=== PATIENT | female | born 2005 | race Caucasian/White ===

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

== ENCOUNTER 2023-10-22 17:19 | Emergency (ER) | payer MEDICAID, SELFPAY ==
[2023-10-22 17:27] VITALS: BP 125/88; PULSE 95; RESP 16; TEMP 36.3; O2SAT 100; BMI 22.1
--- NOTE | 2023-10-22 17:59 | ED.GENADULT ---
HPI - General Adult General Chief complaint: Fall/Minor Trauma Stated complaint: Trampled by horses-2 Time Seen by Provider: 10/22/23 17:22 History of Present Illness HPI narrative: This 18-year-old female comes in for evaluation of injuries that happened just prior to arrival. She states that she has 2 horses and got bumped by 1 of them and she fell down. The horses were spooked and both of them jumped over her and she thinks that she was not directly stepped on by either course but yet complains of some abrasions and pains in her right shoulder, right forearm, and right upper leg. She did not lose consciousness and was able to get up and ambulate normally. Related Data Home Medications Medication Instructions Recorded Confirmed adapalene 0.1 % topical cream 1 applic topical QDAY 03/15/22 10/03/22 (Differin) insulin aspart U-100 100 unit/mL 15 unit subcut TID 03/15/22 10/03/22 (3 mL) subcutaneous pen (Novolog FlexPen U-100 Insulin aspart) insulin degludec 100 unit/mL (3 24 unit subcut QAM 03/15/22 10/03/22 mL) subcutaneous pen ketoconazole 2 % topical cream 1 applic topical QDAY 03/15/22 10/03/22 guanfacine 1 mg tablet,extended 1 mg PO QAM 10/22/23 10/22/23 release 24 hr Allergies Allergy/AdvReac Type Severity Reaction Status Date / Time amoxicillin Allergy Unknown Hives Verified 10/03/22 11:01 Review of Systems Status of ROS: Reports: 10 or more systems reviewed and unremarkable except as noted in History and below Narrative: Constitutional: No fevers, no weight gain or loss. Eyes: No discharge. No vision changes. HENT: No congestion, no sore throat, no ear pain. Cardiovascular: No chest pain, no palpitations. Respiratory: No shortness of breath, no wheezes, no cough. Gastrointestinal: No abdominal pain, no vomiting, no diarrhea. Genitourinary: No dysuria, no hematuria. Musculoskeletal: Normal range of motion. Abrasions on the right upper extremity and lower extremity as described above. Skin: No rashes, no pruritis. Neurological: No dizziness, weakness, sensory change, speech change. Endo/Heme/Allergies: No bruising or bleeding. No polydipsia. Pysch: no suicidality, no anxiety, no insomnia. All other systems reviewed and are negative. 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 HEENT: Small lump on the left forehead. No overlying abrasion or laceration. There is no fluctuance of lump on her forehead. Neck: Normal range of motion. Nontender. Supple. Heart: Regular. No murmurs. Normal rate. Intact distal pulses. Lungs: Clear to auscultation. No chest discomfort. No wheezes, rhonchi, or rales. Abdomen: Normal bowel sounds. Nontender. No rebound tenderness. Genitalia: Deferred. Back: No midline tenderness. Normal range of motion. Extremities: Normal range of motion. Superficial abrasions on the right upper forearm and right knee and upper anterior thigh. Skin: Intact. No rash. Warm. No erythema or pallor. Neurologic: No altered sensation. No weakness. Alert and oriented. Psychiatric: No suicidality. No anxiety or depression. No insomnia. Nursing notes and vitals signs are reviewed. Const: Vital Signs, click to edit/add: Vital Signs - 24 hr 10/22/23 17:27 Temperature 97.3 F L Pulse Rate [Pulse Oximeter] 95 Respiratory Rate 16 Blood Pressure [Ri ght Upper Arm] 125/88 Pulse Oximetry 100 Oxygen Delivery Me thod Room Air Course Vital Signs Vital signs: Initial Vital Signs Temperature 97.3 F L 10/22/23 17:27 Temperature Source Temporal Artery Scan 10/22/23 17:27 Pulse Rate 95 10/22/23 17:27 Pulse Rhythm Regular 10/22/23 17:27 Respiratory Rate 16 10/22/23 17:27 Blood Pressure 125/88 10/22/23 17:27 Blood Pressure Mean 100 10/22/23 17:27 Blood Pressure Position Sitting 10/22/23 17:27 Pulse Oximetry 100 10/22/23 17:27 Oxygen Delivery Method Room Air 10/22/23 17:27 Vital Signs Temperature 97.3 F L 10/22/23 17:27 Pulse Rate 95 10/22/23 17:27 Respiratory Rate 16 10/22/23 17:27 Blood Pressure 125/88 10/22/23 17:27 Pulse Oximetry 100 10/22/23 17:27 Oxygen Delivery Method Room Air 10/22/23 17:27 Temperature 97.3 F L 10/22/23 17:27 Pulse Rate 95 10/22/23 17:27 Respiratory Rate 16 10/22/23 17:27 Blood Pressure 125/88 10/22/23 17:27 Pulse Oximetry 100 10/22/23 17:27 Oxygen Delivery Method Room Air 10/22/23 17:27 Medical Decision Making MDM Narrative Medical decision making narrative: This patient head injuries related to her 2 or sys as described above. She has a normal GCS of 15 and shows some signs of superficial abrasions but has no other disability. She has not had any vomiting. She does describe a headache but it is not severe. She does not have any neurologic deficit or altered level of consciousness. I did discuss the role of CT and x-ray imaging and in a process of shared decision making the patient declined any of these studies. She is okay to be discharged home. She may have sustained a concussion so I did explain signs and symptoms of concussion and prognosis and matters going forward for recovery. The patient did received prescription for Toradol and Zofran and I did provide a return to school note. Discharge Plan Discharge Clinical Impression: Concussion without loss of consciousness, Abrasion, multiple sites Patient Disposition: Home, Self-Care Condition: Stable Additional Instructions: Use medication as needed and directed. Increase activity as tolerated. Follow up with MD return if worsening. Prescriptions: No Action guanfacine 1 mg tablet extended release 24 hr 1 mg PO QAM ketoconazole 2 % cream 1 applic topical QDAY adapalene [Differin] 0.1 % cream 1 applic topical QDAY insulin aspart U-100 [Novolog FlexPen U-100 Insulin] 100 unit/mL (3 mL) insulin pen 15 unit subcut TID insulin degludec 100 unit/mL (3 mL) insulin pen 24 unit subcut QAM Follow Up/Referrals: Janneth Odonnell DO [Primary Care Provider] - Stand Alone Forms: [facility] Info Instructions
--- NOTE | 2023-10-22 18:27 | ED.NURSE ---
Abrasions cleansed with hibiclens and normal saline. Applied bacitracin on top.
[2023-10-22 18:44] VITALS: BP 125/88; PULSE 95; RESP 16; TEMP 36.3
== END 2023-10-22 18:45 | disposition home or self-care (01) ==
LOC: ED 18:29
PROVIDERS: Emergency Provider Emergency Medicine Emergency Medical Services; PCP Family Medicine
DX: S06.0X0A Concussion without loss of consciousness, initial encounter (principal); W55.12XA Struck by horse, initial encounter; S50.811A Abrasion of right forearm, initial encounter; S80.211A Abrasion, right knee, initial encounter
CPT/HCPCS: 99283; 99284

== ENCOUNTER 2023-10-30 16:53 | Emergency (ER) | payer MEDICAID, SELFPAY ==
[2023-10-30 17:08] VITALS: BP 117/75; PULSE 106; RESP 16; TEMP 36.6; O2SAT 100; BMI 18.9
--- NOTE | 2023-10-30 17:42 | ED.EPISTAXIS ---
History of Present Illness General Date Seen: 10/30/23 Chief Complaint: Epistaxis/Nosebleed Stated Complaint: Horse accident last wk-blood loss f nose still Time Seen by Provider: 10/30/23 17:36 Source: patient Mode of arrival: ambulatory Limitations: no limitations History of Present Illness HPI Narrative: Patient is a 18-year-old female presenting to the emergency department for epistaxis. One week ago she was knocked over by her says. She came to the emergency department to be evaluated at that time says it was decided no imaging was necessary per chart review. She states since then she has had 3 episodes of epistaxis. Before this she has never had issues with epistaxis before. She was concerned because of the recent head injury. She states the only pain she is having currently is the left forehead where she had a hematoma. Says the pain is very mild only hurts when she touches it. No other issues at this time. Last episode of epistaxis was shortly prior to arrival and has since resolved. States each time last between 30 minutes and an hour. Denies fevers, chills, headache, vision changes, weakness, numbness, chest pain, shortness of breath, abdominal pain, lightheadedness, dizziness. Related Data Home Medications Medication Instructions Recorded Confirmed adapalene 0.1 % topical cream 1 applic topical QDAY 03/15/22 10/03/22 (Differin) insulin aspart U-100 100 unit/mL 15 unit subcut TID 03/15/22 10/03/22 (3 mL) subcutaneous pen (Novolog FlexPen U-100 Insulin aspart) insulin degludec 100 unit/mL (3 24 unit subcut QAM 03/15/22 10/03/22 mL) subcutaneous pen ketoconazole 2 % topical cream 1 applic topical QDAY 03/15/22 10/03/22 guanfacine 1 mg tablet,extended 1 mg PO QAM 10/22/23 10/22/23 release 24 hr Allergies Allergy/AdvReac Type Severity Reaction Status Date / Time amoxicillin Allergy Unknown Hives Verified 10/03/22 11:01 Review of Systems Status of ROS: Reports: 10 or more systems reviewed and unremarkable except as noted in History and below 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 Moist mucous membranes. Mild tenderness to left forehead and left zygomatic arch. Area of anterior bleeding seen and right nares Neck: Symmetric, trachea midline, No thyromegaly. CVS: RRR, No murmurs or gallops. Peripheral pulses 2+ and equal in all extremities RESP: Unlabored respiratory effort. Clear to auscultation bilaterally. GI: Nontender/Nondistended, No rebound or guarding. MSK:Extremities w/o deformity, Normal Active ROM Skin: Warm, Dry. No rashes or lesions. Neuro: Normal Muscle tone, No focal neurological deficits. Psych: Awake, Alert, & Oriented x3. Appropriate mood and affect. Const: Vital Signs, click to edit/add: Vital Signs - 24 hr 10/30/23 17:08 Temperature 97.9 F Pulse Rate [Right Pulse Oximeter] 106 H Respiratory Rate 16 Blood Pressure [Ri ght Upper Arm] 117/75 Pulse Oximetry 100 Oxygen Delivery Me thod Room Air Course Vital Signs Vital signs: Initial Vital Signs Temperature 97.9 F 10/30/23 17:08 Temperature Source Temporal Artery Scan 10/30/23 17:08 Pulse Rate 106 H 10/30/23 17:08 Pulse Rhythm Regular 10/30/23 17:08 Pulse Strength 3+ Normal 10/30/23 17:08 Respiratory Rate 16 10/30/23 17:08 Blood Pressure 117/75 10/30/23 17:08 Blood Pressure Mean 89 10/30/23 17:08 Blood Pressure Position Sitting 10/30/23 17:08 Pulse Oximetry 100 10/30/23 17:08 Oxygen Delivery Method Room Air 10/30/23 17:08 Vital Signs Temperature 97.9 F 10/30/23 17:08 Pulse Rate 106 H 10/30/23 17:08 Respiratory Rate 16 10/30/23 17:08 Blood Pressure 117/75 10/30/23 17:08 Pulse Oximetry 100 10/30/23 17:08 Oxygen Delivery Method Room Air 10/30/23 17:08 Temperature 97.9 F 10/30/23 17:08 Pulse Rate 106 H 10/30/23 17:08 Respiratory Rate 16 10/30/23 17:08 Blood Pressure 117/75 10/30/23 17:08 Pulse Oximetry 100 10/30/23 17:08 Oxygen Delivery Method Room Air 10/30/23 17:08 MDM - Epistaxis MDM Narrative Medical decision making narrative: Patient is a 18-year-old female presenting to the emergency department for epistaxis. On my exam I could clearly see where the bleeding is starting in his anterior. There is very unlikely to be a posterior bleed along with this I do not believe head imaging is necessary as I can clearly see where the bleeding starts. Even if there is a minor fracture of the cartilage or nasal bone fracture there is nothing needs to be done for it at this time. I do not see any signs of an open fracture within the nostril. She has the mild temporal and zygomatic arch tenderness on left but is only there on palpation and she is not concerned about it. I do not believe we need to do any head imaging at this time as the exposure to radiation would be unnecessary. She will be discharged home. This nose bleed is likely just from the dry air. 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 She is agreeable with this plan Discharge Plan Discharge Clinical Impression: Epistaxis Patient Disposition: Home, Self-Care Condition: Stable Instructions: Nosebleed (ED) Additional Instructions: The nose bleed occurs again blowout the nostril that is bleeding. Do a spray of Afrin. Foot direct pressure over the cartilage area of the nose and the new head forward for 20 minutes. The Afrin can can be picked up [id number]. He continued to have issues with it she can follow up with the primary care provider or follow-up with ENT. Phone number to set up ENT appointment is [phone] Prescriptions: No Action guanfacine 1 mg tablet extended release 24 hr 1 mg PO QAM ketoconazole 2 % cream 1 applic topical QDAY adapalene [Differin] 0.1 % cream 1 applic topical QDAY insulin aspart U-100 [Novolog FlexPen U-100 Insulin] 100 unit/mL (3 mL) insulin pen 15 unit subcut TID insulin degludec 100 unit/mL (3 mL) insulin pen 24 unit subcut QAM Follow Up/Referrals: Janneth Odonnell DO [Primary Care Provider] - Stand Alone [facility]
== END 2023-10-30 18:09 | disposition home or self-care (01) ==
LOC: ED 17:58
PROVIDERS: Emergency Provider Student in an Organized Health Care Education/Training Program; PCP Family Medicine
DX: R04.0 Epistaxis (principal)
CPT/HCPCS: 99282; 99283

== ENCOUNTER 2023-12-19 09:18 | Emergency (ER) | payer OTHER, SELFPAY ==
[2023-12-19] VITALS (55 sets, daily range): BP systolic 103–144; BP diastolic 63–111; PULSE 118–163; RESP 20; TEMP 36.3; O2SAT 76–100; BMI 18.3
[2023-12-19] MEDS: ONDANSETRON 2 MG/ML inj 4 MG IVP (09:45)
[2023-12-19] MEDS: LORazepam 2 MG/ML inj 1 MG IVP ×2 (09:45→12:52)
[2023-12-19] MEDS: 0.9 % SODIUM CHLORIDE 1000 ml 1,000 ML IV (09:45)
[2023-12-19 10:12] LABS: HCO3 VBG 4 mmol/L (21-28); PCO2 VBG 23 mmHG (40-50); PO2 VBG 66.9 mmHG (25-47)
[2023-12-19 10:14] LABS: Basophils Percent Auto 0.3 % (0.0-3.0); Eosinophils Percent Auto 0.1 % (0.0-7.0); Hemoglobin* 15.9 gm/dL (12.0-16.0); Immature Granulocytes Pct Auto 1.4 %; Lymphocytes Percent Auto 18.7 % (20-44); Mean Corpuscular HGB Conc 32 gm/dL (32-36); Mean Corpuscular Hemoglobin 32 pg (26-34); Mean Corpuscular Volume 99 fL (80-100); Monocytes Percent Auto 4.7 % (0.0-11.0); Neutrophils Percent Auto 74.8 % (42.0-72.0); Platelet Count* 529 K/uL (140-440); RDW Coefficient of Variation % 12.6 % (11.5-15.5); Red Blood Count 5.04 m/uL (4.00-5.20)
[2023-12-19 10:33] LABS: Slide Review Reflex No
[2023-12-19 10:50] LABS: Albumin* 5.5 g/dL (3.3-5.0); Chloride* 108 mmol/L (96-114)
[2023-12-19 10:51] LABS: Potassium* 5.5 mmol/L (3.6-5.1); Sodium* 146 mmol/L (135-149)
[2023-12-19 10:53] LABS: Bilirubin Total* 0.5 mg/dL (0.1-1.5); Creatinine* 1.3 mg/dL (0.5-1.5); Est. Creatinine Clearance* 54.37; Estimated Glomerular Filt Rate 60 ml/min; Total Protein* 10.7 g/dL (6.0-8.3)
[2023-12-19 10:54] LABS: Alanine Aminotransferase* 70 U/L (4-35); Alkaline Phosphatase* 255 U/L (40-150); Anion Gap 33 mEq/L (7-15); Aspartate Amino Transferase* 102 U/L (12-35); Blood Urea Nitrogen* 24 mg/dL (5-24); Calcium* 10.7 mg/dL (8.4-10.6); Carbon Dioxide* < 5 mmol/L (20-32)
[2023-12-19 11:06] LABS: Ethanol* < 0.01 % (0.01-0.03)
[2023-12-19 11:07] LABS: White Blood Count* 27.43 K/uL (4.50-11.00)
--- NOTE | 2023-12-19 11:10 | ED.GENADULT ---
HPI - General Adult General Date Seen: 12/19/23 Chief complaint: Abdominal Pain Stated complaint: vomiting,stomach pain Time Seen by Provider: 12/19/23 09:31 History of Present Illness HPI narrative: History is limited by patient agitation and altered mental status 18-year-old female brought to the ER today by her mother with concern for abdominal pain, nausea, shortness of breath. She has a history of type 1 diabetes. She is supposed to be on Tresiba and use a continuous glucose monitor to manage her diabetes. History from her patient's mother and her friend mil is that she generally does not do a good job controlling her diabetes. It sounds like it is an aggravation for her and she does not like having to deal with it. It is not clear when the last time she took any of her insulin was. She may have taken some yesterday, but she can not tell me for sure. Her daughter says that there is no data from her continuous glucose monitor for at least the past 24 hours. No one knows what her sugars been running today or lately. She started to feel sick overnight with abdominal pain and nausea. She is feeling short of breath. Her mother brought her in. The patient is shouting and moaning loudly, thrashing around on the bed. She is not really able to provide any other history. Over the phone, from her friend Mil, they say that she has been doing well lately other than she has does deal with anxiety and depression. She broke up with her boyfriend last week, but her friend mil says it really has not been a problem for her. They really do not think that she has been suicidal or would have taken any pills. She does not use drugs or alcohol. She is student, unclear how she is doing her course work. Mother is well-versed with diabetes care because for other family members have insulin-dependent diabetes. She does not recall any previous episodes of DKA or previous hospitalization for diabetic complications for fate. Related Data Home Medications Medication Instructions Recorded Confirmed adapalene 0.1 % topical cream 1 applic topical QDAY 03/15/22 10/03/22 (Differin) insulin aspart U-100 100 unit/mL 15 unit subcut TID 03/15/22 10/03/22 (3 mL) subcutaneous pen (Novolog FlexPen U-100 Insulin aspart) insulin degludec 100 unit/mL (3 24 unit subcut QAM 03/15/22 10/03/22 mL) subcutaneous pen ketoconazole 2 % topical cream 1 applic topical QDAY 03/15/22 10/03/22 guanfacine 1 mg tablet,extended 1 mg PO QAM 10/22/23 10/22/23 release 24 hr Allergies Allergy/AdvReac Type Severity Reaction Status Date / Time amoxicillin Allergy Unknown Hives Verified 12/19/23 14:27 PFSH PFS Medical History Pyelonephritis (~03/2022) ?N12 - Tubulo-interstitial nephritis, not specified as acute or chronic (ICD-10) Family History Other Heart disease History of hyperlipidemia Social History Smoking Status: Never smoker Do you use any of these nicotine containing products: None Second hand tobacco smoke exposure: No How often do you have a drink containing alcohol: never AUDIT-C Alcohol total score: 0 Non-prescribed substance use: denies use Little interest or pleasure in doing things: more than half the days Feeling down, depressed, or hopeless: more than half the days service: No Exam Narrative: Exam Narrative: Primary Survey: A- patent. Shouting with a loud voice. Phonation is normal. She is a bit confused , but is protecting her airway B- tachypnea. Lung sounds clear and equal. Oxygen saturation normal on room air C- no active bleeding. Blood pressure stable. Symmetric pulses and cap refill in 4 extremities. D- no focal deficits. She is uncooperative with exam and is moaning and shouting. She often rolls onto her side specifically to look away from me in her nurses. She shouting that she ?can not do it? but with reassurance she is able to roll onto her back for IV start and exam. She is moaning and agitated. Providers was seen her of previous ER visits a that this tends to be her typical affect when she presents. She has a tendency toward anxiety. Mother is at her side is trying to get her to cooperate. Mother is supportive. Constitutional: Appears well-developed and well-nourished. Awake but seems somewhat confused. 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 HENT: Head: Atraumatic. Nose: Nose normal. Mouth/Throat: Oral mucosa is clear but quite dry. no trismus. Pharynx normal. Tonsils symmetric. No tonsillar enlargement, erythema, or exudate. Eyes: Conjunctivae normal. EOM normal. Pupils equal, round, and reactive to light. No scleral icterus. Neck: Normal range of motion. Neck supple. No tracheal deviation present. Cardiovascular: Tachycardic, regular rhythm. No gallop. No friction rub. No murmur heard. Symmetric radial artery pulses normal cap refill Pulmonary/Chest: Effort normal. She is moaning and shouting loudly. No stridor. No respiratory distress. No wheezes. No rales. No rhonchi . No tenderness. Abdominal: Soft. Bowel sounds normal. No distension. No mass. No tenderness. No rebound. No guarding. No CVA tenderness Musculoskeletal: RUE: Normal range of motion. No tenderness. No deformity LUE: Normal range of motion. No tenderness. No deformity RLE: Normal range of motion. No edema. No tenderness. No deformity LLE: Normal range of motion. No edema. No tenderness. No deformity Lymph: No cervical adenopathy. Neurological: Awake but agitated and moaning. Moving all 4 extremities purposefully. At most of the time she is uncooperative but not combative.. Normal bilateral upper extremity and lower extra strength. CN II-VII intact. No sensory deficit. GCS eye subscore is 4. GCS verbal subscore is 5. GCS motor subscore is 6. Normal coordination Skin: Skin is warm and dry. No rash noted. No pallor. Normal capillary refill. Psychiatric: Moaning and agitated. Says she is nauseous and also thirsty. Const: Vital Signs, click to edit/add: Vital Signs - 24 hr 12/19/23 09:29 12/19/23 11:27 12/19/23 11:28 Temperature 97.3 F L Pulse Rate 150 H 150 H Pulse Rate [Pulse Oximeter] 150 H Respiratory Rate 20 Blood Pressure 131/84 Blood Pressure [Ri ght Upper Arm] 140/108 H Pulse Oximetry 98 98 100 Oxygen Delivery Me thod Room Air 12/19/23 11:30 12/19/23 11:52 12/19/23 12:00 Temperature Pulse Rate 154 H 140 H Pulse Rate [Pulse Oximeter] Respiratory Rate Blood Pressure Blood Pressure [Ri ght Upper Arm] Pulse Oximetry 100 76 L 82 L Oxygen Delivery Tx thod 12/19/23 12:09 12/19/23 12:12 12/19/23 12:15 Temperature Pulse Rate 148 H 151 H 149 H Pulse Rate [Pulse Oximeter] Respiratory Rate Blood Pressure 127/77 105/82 Blood Pressure [Ri ght Upper Arm] Pulse Oximetry 97 100 99 Oxygen Delivery Tx thod 12/19/23 12:17 12/19/23 12:35 12/19/23 12:37 Temperature Pulse Rate 154 H 154 H Pulse Rate [Pulse Oximeter] Respiratory Rate Blood Pressure 103/65 Blood Pressure [Ri ght Upper Arm] Pulse Oximetry 100 100 Oxygen Delivery Tx thod 12/19/23 12:43 12/19/23 12:45 12/19/23 12:47 Temperature Pulse Rate 153 H 156 H 152 H Pulse Rate [Pulse Oximeter] Respiratory Rate Blood Pressure 132/84 116/80 Blood Pressure [Ri ght Upper Arm] Pulse Oximetry 100 100 100 Oxygen Delivery Tx thod 12/19/23 12:52 12/19/23 12:57 12/19/23 13:00 Temperature Pulse Rate 152 H 155 H 163 H Pulse Rate [Pulse Oximeter] Respiratory Rate Blood Pressure 133/82 144/86 H Blood Pressure [Ri ght Upper Arm] Pulse [facility]ximetry 99 98 [facility] 13[facility]01 12/19/23 13:06 12/19/23 13:11 Temperature Pulse Rate 159 H 156 H 155 H Pulse Rate [Pulse Oximeter] Respiratory Rate Blood Pressure 131/111 H 123/84 119/86 Blood Pressure [Ri ght Upper Arm] Pulse Oximetry 100 100 100 Oxygen Delivery Tx thod 12/19/23 13:15 12/19/23 13:16 12/19/23 13:22 Temperature Pulse Rate 153 H 153 H 154 H Pulse Rate [Pulse Oximeter] Respiratory Rate Blood Pressure 124/82 133/85 Blood Pressure [Ri ght Upper Arm] Pulse Oximetry 100 100 [facility] 13:27 12/19/23 13:30 12/19/23 13:31 Temperature Pulse Rate 147 H 152 H 152 H Pulse Rate [Pulse Oximeter] Respiratory Rate Blood Pressure 130/87 123/87 Blood Pressure [Ri ght Upper Arm] Pulse Oximetry 99 100 100 Oxygen Delivery Me thod 12/19/23 13:32 12/19/23 13:37 12/19/23 13:41 Temperature Pulse Rate 152 H 151 H 148 H Pulse Rate [Pulse Oximeter] Respiratory Rate Blood Pressure 130/95 H 134/90 H Blood Pressure [Ri ght Upper Arm] Pulse Oximetry 100 100 100 Oxygen Delivery Me thod 12/19/23 13:45 12/19/23 13:46 12/19/23 13:51 Temperature Pulse Rate 150 H 151 H 148 H Pulse Rate [Pulse Oximeter] Respiratory Rate Blood Pressure 130/89 131/93 H Blood Pressure [Ri ght Upper Arm] Pulse Oximetry 99 100 100 Oxygen Delivery Me thod 12/19/23 13:51 12/19/23 13:56 12/19/23 14:00 Temperature Pulse Rate 148 H 148 H 146 H Pulse Rate [Pulse Oximeter] Respiratory Rate Blood Pressure 131/93 H 131/81 Blood Pressure [Ri ght Upper Arm] Pulse Oximetry 100 100 99 Oxygen Delivery Me thod 12/19/23 14:01 12/19/23 14:06 12/19/23 14:12 Temperature Pulse Rate 146 H 148 H 143 H Pulse Rate [Pulse Oximeter] Respiratory Rate Blood Pressure 104/69 118/87 113/75 Blood Pressure [Ri ght Upper Arm] Pulse Oximetry 99 98 100 Oxygen Delivery Me thod 12/19/23 14:15 12/19/23 14:17 12/19/23 14:21 Temperature Pulse Rate 118 H 148 H 147 H Pulse Rate [Pulse Oximeter] Respiratory Rate Blood Pressure 106/89 126/79 Blood Pressure [Ri ght Upper Arm] Pulse Oximetry 89 100 100 Oxygen Delivery Me thod 12/19/23 14:26 12/19/23 14:30 12/19/23 14:31 Temperature Pulse Rate 141 H 143 H 144 H Pulse Rate [Pulse Oximeter] Respiratory Rate Blood Pressure 106/66 104/72 Blood Pressure [Ri ght Upper Arm] Pulse Oximetry 99 99 99 Oxygen Delivery Me thod 12/19/23 14:36 12/19/23 14:45 12/19/23 14:46 Temperature Pulse Rate 146 H 147 H 148 H Pulse Rate [Pulse Oximeter] Respiratory Rate Blood Pressure 105/63 Blood Pressure [Ri ght Upper Arm] Pulse Oximetry 98 97 97 Oxygen Delivery Me thod 12/19/23 14:49 12/19/23 14:55 12/19/23 14:58 Temperature Pulse Rate 145 H 143 H 142 H Pulse Rate [Pulse Oximeter] Respiratory Rate Blood Pressure Blood Pressure [Ri ght Upper Arm] Pulse Oximetry 98 98 100 Oxygen Delivery Me thod 12/19/23 15:00 12/19/23 15:08 12/19/23 15:09 Temperature Pulse Rate 144 H 142 H 143 H Pulse Rate [Pulse Oximeter] Respiratory Rate Blood Pressure 112/69 Blood Pressure [Ri ght Upper Arm] Pulse Oximetry 98 97 97 Oxygen Delivery Me thod 12/19/23 15:15 12/19/23 15:30 Temperature Pulse Rate 141 H 143 H Pulse Rate [Pulse Oximeter] Respiratory Rate Blood Pressure Blood Pressure [Ri ght Upper Arm] Pulse Oximetry 98 97 Oxygen Delivery Me thod Course Vital Signs Vital signs: Initial Vital Signs Temperature 97.3 F L 12/19/23 09:29 Temperature Source Temporal Artery Scan 12/19/23 09:29 Pulse Rate 150 H 12/19/23 09:29 Respiratory Rate 20 12/19/23 09:29 Blood Pressure 140/108 H 12/19/23 09:29 Blood Pressure Mean 118 H 12/19/23 09:29 Pulse Oximetry 98 12/19/23 09:29 Oxygen Delivery Method Room Air 12/19/23 09:29 Vital Signs Temperature 97.3 F L 12/19/23 09:29 Pulse Rate 150 H 12/19/23 09:29 Respiratory Rate 20 12/19/23 09:29 Blood Pressure 140/108 H 12/19/23 09:29 Pulse Oximetry 98 12/19/23 09:29 Oxygen Delivery Method Room Air 12/19/23 09:29 Temperature 97.3 F L 12/19/23 09:29 Pulse Rate 143 H 12/19/23 15:30 Respiratory Rate 20 12/19/23 09:29 Blood Pressure 112/69 12/19/23 15:08 Pulse Oximetry 97 12/19/23 15:30 Oxygen Delivery Method Room Air 12/19/23 09:29 Medications Administered Medications: Generic Name Dose Route Start Last Admin Trade Name Cathy PRN Reason Stop Dose Admin Insulin Human (Reg)/Sodium Chloride 100 unit in 100 mls @ 5 mls/hr 12/19/23 10:30 12/19/23 15:22 Insulin Inf 100 Unit/100 Ml IVPB 2.5 unit/hr .Q20H DOROTHY 2.5 mls/hr Infusion Protocol 5 UNIT/HR Lactated Ringer's 1,000 mls @ 500 mls/hr 12/19/23 11:50 12/19/23 14:07 Lactated Ringers 1000 Ml IV Not Given .Q2H DOROTHY Potassium Chloride/Dextrose/Sod Cl 1,000 mls @ 250 mls/hr 12/19/23 15:30 12/19/23 15:35 5 % Dex/0.9 Sod Chl+Kcl 20 Meq IV 250 mls/hr .Q4H DOROTHY Administration Discontinued Medications Generic Name Dose Route Start Last Admin Trade Name Cathy PRN Reason Stop Dose Admin Sodium Chloride 1,000 mls @ 1,000 mls/hr 12/19/23 09:33 12/19/23 13:01 0.9 % Sodium Chloride 1000 Ml IV 12/19/23 10:32 Infused .Q1H DOROTHY Infusion Potassium Chloride/Sodium Chloride 1,000 mls @ 250 mls/hr 12/19/23 13:40 12/19/23 15:35 0.9 % Sodium Ch + Kcl 20 Meq/L IV 0 mls/hr .Q4H DOROTHY Infusion Lorazepam 1 mg 12/19/23 09:33 12/19/23 09:45 Lorazepam 2 Mg/Ml Inj IVP 12/19/23 09:34 1 mg ONCE ONE Administration Lorazepam 1 mg 12/19/23 11:50 12/19/23 12:52 Lorazepam 2 Mg/Ml Inj IVP 12/19/23 11:51 1 mg ONCE ONE Administration Ondansetron HCl 4 mg 12/19/23 09:32 12/19/23 09:45 Ondansetron 2 Mg/Ml Inj IVP 12/19/23 09:33 4 mg ONCE ONE Administration Sodium Bicarbonate 100 meq 12/19/23 10:28 12/19/23 11:19 Sodium Bicarbonate 50 Meq/50ml Syringe IVP 12/19/23 10:29 100 meq ONCE ONE Administration Sodium Bicarbonate 50 meq 12/19/23 12:38 12/19/23 13:00 Sodium Bicarbonate 50 Meq/50ml Syringe IVP 12/19/23 12:39 50 meq ONCE ONE Administration Medical Decision Making MDM Narrative Medical decision making narrative: 18-year-old female presenting to the ER today with shortness of breath, nausea, abdominal pain, dry mouth, also with significant agitation, moaning and shouting. 1. Endocrine. Has a history of type 1 diabetes. It sounds like she has been non compliant with her insulin. Were not even sure when the last time she took it was. She has not had her CGM on for at least 24 hours. With tachypnea and shortness of breath, concern is for probable DKA. Found to be hyperglycemic. Bedside glucose readHi. Ultimately on metabolic profile serum glucose is 680. Metabolic profile also confirms low bicarb at less than 5. Assuming bicarb were 5, calculated anion gap would be 33-which is a widened P gap. She has a acidosis with the venous blood gas showing pH of 6.85. Serum ketone levels not available here in [place] as they are a send out. However other labs strongly suggest DKA. Will start on insulin drip. Weight based 0.1 units/kilogram per hour. Consulted with indirect fire infantryman from [facility], Dr. Sanford. Concern is this patient has a marked metabolic acidosis. He recommends 2-3 amps of sodium bicarbonate to try to get her pH above 7. Otherwise continue with saline hydration as needed, insulin drip. He would agree she will be appropriate for the progressive care unit at [facility]. He has accepted her as of about 10 50 in the morning. Unfortunately there will be a bed delay before she can receive a bed at [place]. Hemoglobin A1c is 13 Sugar came down, then it is 555, then down to 266. With drop of about 300 mg/dL over an hour we cut her insulin drip from 5 units/hour by half down to 2.5 units/hour and put her on D5 normal saline with potassium chloride to avoid overly rapid glucose drop 2. Renal/electrolytes. BUN 24 creatinine 1.3. Potassium is 5.5. Expect this will come down with IV fluid hydration and insulin drip. Repeat BMP after 2 hours of insulin drip showed pH down to 3.8. Will add potassium to her maintenance IV fluids. Follow-up the potassium up to 4.6. Initial sodium measured at 146. When corrected this actually would be sodium in the high 150s. Follow-up sodiums as these blood sugar came down state stable about 158-159. Suspect hypernatremia may have some component of her altered mental status. At this point unclear chronicity of the hypernatremia. Presumably acute. Trying to avoid overly rapid correction we are avoiding hypotonic crystalloid for maintenance. She is on normal saline with potassium chloride Initial bolus of 1 L normal saline. Then switched to lactated Ringer's at 500 mils per hour for 2 hours. With decreasing potassium, will switch to normal saline with 20 mEq of KCl per L at 250 mils per hour. She is producing urine. Kidney function improved on repeat BMP. Now on D5 normal saline with potassium chloride. 3. Hepatic. Abnormal LFTs. AST 102, ALT 70. Alk-phos elevated to 55. These were previously normal. Fortunately today, Total bilirubin normal at 0.5. 4. Psychiatric: Recently broke up with her boyfriend. However her friend confirms this is not really a stressor for her. Friend has no concern for potential suicidal ideation. They deny any drug or alcohol use. However given the degree of her presenting agitation we did consider possible drug or alcohol intoxication. Alcohol level negative. 5. ID: Consider possible infection as a trigger for DKA (although med noncompliance seems more likely). Does have leukocytosis of 27. Unclear significance as can be elevated in the setting of DKA. No fever. 6. Neuro. Patient is presenting with moaning, shouting, agitation and restlessness. Mental status seems to be fluctuating here in the ER. Did require benzodiazepines-2 separate doses of Ativan 1 mg for agitation to keep her from pulling at her IVs. She did manage to pull up for cardiac monitors and infiltrated IV once due to agitation. At this point she is calmer more restful after Ativan. Suspect mental status is probably related to her severe metabolic acidosis and DKA. Head CT shows no focal mass and no clear evidence for cerebral edema although concern with this degree of acidosis and severe DKA she is at risk. Blood sugar was elevated at 860, came down to 764 and then 555 after starting on insulin drip. The with markedly low pH and altered mental status I did feel this patient needed ICU level care. We were careful only monitoring her here in the ER with her altered mental status. She was agitated and pulling at her monitors and lines and required 2 doses of Ativan for anxiolysis. She also did well with continuous reassurance from her family at her bedside. I was initially concerned that we may actually have to intubate her for adequate sedation and so she could be resuscitated. However wanting to avoid intubation in the setting of a severe metabolic acidosis we were able to get her through with meds. Multiple bedside rechecks during her ER course. Multiple rounds of labs to follow her resuscitation. We did give a total of 3 amps of sodium bicarbonate for her metabolic acidosis. Although I was concerned that she might have respiratory decompensation she was able to maintain her respiratory rate in the 40s which is compensation for metabolic acidosis. I had multiple phone conversations with the indirect fire infantryman at [facility], Dr. Sanford. There was also substantial delay in arranging this patient's transfer due to unit availability at [facility]. Ultimately she is accepted to the progressive care unit. Lab Data Labs: Lab Results 12/19/23 12/19/23 12/19/23 Range/Units 09:58 11:40 11:57 WBC 27.43 H* (4.50-11.00) K/uL RBC 5.04 (4.00-5.20) m/uL Hgb 15.9 (12.0-16.0) gm/dL Hct 50.0 (33.0-51.0) % MCV 99 (80-100) fL MCH 32 (26-34) pg MCHC 32 (32-36) gm/dL RDW Coeff of Meri 12.6 (11.5-15.5) % Plt Count 529 H (140-440) K/uL Neut % (Auto) 74.8 H (42.0-72.0) % Lymph % (Auto) 18.7 L (20-44) % Valley % (Auto) 4.7 (0.0-11.0) % Eos % (Auto) 0.1 (0.0-7.0) % Baso % (Auto) 0.3 (0.0-3.0) % Neut # (Auto) 20.50 H (1.7-7.0) K/uL Lymph # (Auto) 5.10 H (0.90-2.90) K/uL Valley # (Auto) 1.30 H (0.00-0.90) K/UL Eos # (Auto) 0.00 (0.00-0.50) K/uL Baso # (Auto) 0.10 (0.00-0.30) K/uL Abs Immat Gran (auto) 0.40 H (0.00-0.30) K/uL Imm/Tot Granulo (auto) 1.4 % VBG pH 6.840 L* 6.880 L* (7.32-7.43) VBG pCO2 23 L 21 L (40-50) mmHG VBG pO2 66.9 H 64.0 H (25-47) mmHG VBG HCO3 4 L 4 L (21-28) mmol/L Sodium 146 149 (135-149) mmol/L Potassium 5.5 H 3.8 (3.6-5.1) mmol/L Chloride 108 118 H (96-114) mmol/L Carbon Dioxide < 5 L* < 5 L* (20-32) mmol/L Anion Gap 33 H 26 H (7-15) mEq/L BUN 24 22 (5-24) mg/dL Creatinine 1.3 0.9 (0.5-1.5) mg/dL Estimated Creat Clear 54.37 78.54 Estimated GFR 60 94 ml/min Glucose 860 H* 764 H* (60-115) mg/dL Hemoglobin A1c 13.0 H (0-5.6) % Calcium 10.7 H 7.2 L (8.4-10.6) mg/dL Phosphorus 10.3 H* 7.4 H* (2.5-4.5) mg/dL Magnesium 2.8 H 2.0 (1.5-2.6) mg/dL Total Bilirubin 0.5 (0.1-1.5) mg/dL AST 102 H (12-35) U/L ALT 70 H (4-35) U/L Alkaline Phosphatase 255 H (40-150) U/L Total Protein 10.7 H (6.0-8.3) g/dL Albumin 5.5 H (3.3-5.0) g/dL Urine Color Yellow (Yellow) Urine Appearance Clear (Clear) Urine pH 5.5 (5.0-8.5) Ur Specific [place] 1.015 (1.000-1.030) Urine Protein 2+ A (Negative) Urine Glucose (UA) 2+ A (Negative) Urine Ketones 4+ A (Negative) Urine Blood Trace-intact A (Negative) Urine Nitrite Negative (Negative) Urine Bilirubin Negative (Negative) Urine Urobilinogen 0.2 (0.2-1.0) Ur Leukocyte Esterase Negative (Negative) Urine RBC 2-5 A (0-2) Urine WBC 0-2 (0-5) Ur Squamous Epith Cells Few (None-Few) Urine Bacteria None (None) Urine HCG, Qual Negative (Negative) Urine Opiates Screen Negative (Negative) Ur Oxycodone Screen Negative (Negative) Urine Methadone Screen Negative (Negative) Ur Barbiturates Screen Negative (Negative) U Tricyclic Antidepress Negative (Negative) Ur Phencyclidine Scrn Negative (Negative) Ur Amphetamines Screen Negative (Negative) U Methamphetamines Scrn Negative (Negative) U Benzodiazepines Scrn Negative (Negative) Urine Cocaine Screen Negative (Negative) U Marijuana (THC) Screen Negative (Negative) Ur Drug Screen Comment See Note Ethyl Alcohol < 0.01 L (0.01-0.03) % 12/19/23 Range/Units 14:21 WBC (4.50-11.00) K/uL RBC (4.00-5.20) m/uL Hgb (12.0-16.0) gm/dL Hct (33.0-51.0) % MCV (80-100) fL MCH (26-34) pg MCHC (32-36) gm/dL RDW Coeff of Meri (11.5-15.5) % Plt Count (140-440) K/uL Neut % (Auto) (42.0-72.0) % Lymph % (Auto) (20-44) % Valley % (Auto) (0.0-11.0) % Eos % (Auto) (0.0-7.0) % Baso % (Auto) (0.0-3.0) % Neut # (Auto) (1.7-7.0) K/uL Lymph # (Auto) (0.90-2.90) K/uL Valley # (Auto) (0.00-0.90) K/UL Eos # (Auto) (0.00-0.50) K/uL Baso # (Auto) (0.00-0.30) K/uL Abs Immat Gran (auto) (0.00-0.30) K/uL Imm/Tot Granulo (auto) % VBG pH 7.170 L* (7.32-7.43) VBG pCO2 20 L (40-50) mmHG VBG pO2 54.5 H (25-47) mmHG VBG HCO3 7 L (21-28) mmol/L Sodium 155 H (135-149) mmol/L Potassium 4.6 (3.6-5.1) mmol/L Chloride 120 H (96-114) mmol/L Carbon Dioxide (20-32) mmol/L Anion Gap (7-15) mEq/L BUN (5-24) mg/dL Creatinine (0.5-1.5) mg/dL Estimated Creat Clear Estimated GFR ml/min Glucose (60-115) mg/dL Hemoglobin A1c (0-5.6) % Calcium (8.4-10.6) mg/dL Phosphorus (2.5-4.5) mg/dL Magnesium (1.5-2.6) mg/dL Total Bilirubin (0.1-1.5) mg/dL AST (12-35) U/L ALT (4-35) U/L Alkaline Phosphatase (40-150) U/L Total Protein (6.0-8.3) g/dL Albumin (3.3-5.0) g/dL Urine Color (Yellow) Urine Appearance (Clear) Urine pH (5.0-8.5) Ur Specific Seminary (1.000-1.030) Urine Protein (Negative) Urine Glucose (UA) (Negative) Urine Ketones (Negative) Urine Blood (Negative) Urine Nitrite (Negative) Urine Bilirubin (Negative) Urine Urobilinogen (0.2-1.0) Ur Leukocyte Esterase (Negative) Urine RBC (0-2) Urine WBC (0-5) Ur Squamous Epith Cells (None-Few) Urine Bacteria (None) Urine HCG, Qual (Negative) Urine Opiates Screen (Negative) Ur Oxycodone Screen (Negative) Urine Methadone Screen (Negative) Ur Barbiturates Screen (Negative) U Tricyclic Antidepress (Negative) Ur Phencyclidine Scrn (Negative) Ur Amphetamines Screen (Negative) U Methamphetamines Scrn (Negative) U Benzodiazepines Scrn (Negative) Urine Cocaine Screen (Negative) U Marijuana (THC) Screen (Negative) Ur Drug Screen Comment Ethyl Alcohol (0.01-0.03) % Imaging Data CT Chest/Ab/Pelvis: Attestation: I have reviewed the pertinent imaging results. Radiologist's impression: IMPRESSION: 1. No evidence of acute cardiopulmonary disease. 2. Subtle decreased enhancement in the lateral left kidney may represent pyelonephritis in the appropriate clinical setting. No urolithiasis, hydronephrosis or perinephric fluid collection. CT scan - head: Radiologist's impression: IMPRESSION: No acute intracranial abnormality. ECG Data Attestation: I personally reviewed and interpreted this ECG as follows: Interpretation: Sinus tachycardia with short DC Rate: 146 DC: Her 110 QRS axis: Right axis deviated ST segment/T wave: She no ST segment elevation or depression QTc: 455 Critical Care Time Critical Care Time Critical Care Time: Yes Attestation: The patient required my highest level preparedness to intervene emergently and I personally spent this critical care time directly and personally managing the patient. This critical care time included: Obtaining a history; Examining the patient; Pulse oximetry; Ordering and reviewing of studies; Arranging urgent treatment with development of a management plan; Evaluation of patients response to treatment; Frequent reassessment discussions with other providers. This critical care time was performed to assess and manage the high probability of imminent life-threatening deterioration that could result in multiorgan failure. It was exclusive of separate billable procedures and treating other patients and teaching time. Total Critical Care Time in Minutes: 70 Discharge Plan Discharge Clinical Impression: DKA (diabetic ketoacidosis), Hypernatremia Prescriptions: No Action guanfacine 1 mg tablet extended release 24 hr 1 mg PO QAM ketoconazole 2 % cream 1 applic topical QDAY adapalene [Differin] 0.1 % cream 1 applic topical QDAY insulin aspart U-100 [Novolog FlexPen U-100 Insulin] 100 unit/mL (3 mL) insulin pen 15 unit subcut TID insulin degludec 100 unit/mL (3 mL) insulin pen 24 unit subcut QAM Follow Up/Referrals: Janneth Odonnell DO [Primary Care Provider] -
[2023-12-19] MEDS: INSULIN INF 100 UNIT/100 ML 100 UNIT/100 ML BAG IVPB (11:17)
[2023-12-19] MEDS: SODIUM BICARBONATE 50 MEQ/50ML SYRINGE 100 MEQ IVP (11:19)
[2023-12-19 11:24] LABS: Magnesium* 2.8 mg/dL (1.5-2.6)
[2023-12-19 11:31] LABS: Glucose* 860 mg/dL (60-115)
[2023-12-19 11:33] LABS: Phosphorus* 10.3 mg/dL (2.5-4.5)
--- NOTE | 2023-12-19 11:48 | CT_ITS ---
Patient: JUAN A PENA Facility:?[facility] Patient ID:?[id number] Site Patient ID:?[id number]. Site :?[id number] Study:?CT-Chest/Abd/Pelvis 54CC ISOVUE 370-12/19/2023 12:35:50 PM Ordering Physician:?DR. VALDOVINOS Final Report: INDICATION: DKA. High white count. Flank pain. TECHNIQUE: CT chest, abdomen and pelvis acquired with 54 cc of Isovue 370 IV contrast. COMPARISON: CT abdomen and pelvis 04/11/2022. FINDINGS: Chest: Cardiovascular structures: Heart size is normal. Thoracic aorta and pulmonary arteries as imaged are unremarkable. Mediastinum and barber: No mass or adenopathy. Lungs: No pneumothorax. Central airways are patent. Lungs are clear. Pleura and pericardium: No effusions. Chest wall and axilla: No mass or adenopathy. Abdomen and Pelvis: Liver: Unremarkable. Spleen: Unremarkable. Pancreas: Unremarkable. Gallbladder and bile ducts: Unremarkable. Kidneys: There is a subtle area of decreased cortical enhancement in the lateral left kidney. Evaluation is degraded by motion. No definite additional focal renal abnormality. No urolithiasis or hydronephrosis. No perinephric fluid collection. Adrenal glands: Unremarkable. GI tract: No evidence of obstruction or acute appendicitis. No focal inflammatory changes elsewhere. Fecal loading of the distal colon. No free air or free fluid. Vascular structures: Unremarkable. Lymph nodes: Unremarkable. Pelvic Organs: Unremarkable. Bones: No acute or suspicious osseous abnormality. IMPRESSION: 1. No evidence of acute cardiopulmonary disease. 2. Subtle decreased enhancement in the lateral left kidney may represent pyelonephritis in the appropriate clinical setting. No urolithiasis, hydronephrosis or perinephric fluid collection. Dictated by Rainer Yousif MD @ 12/19/2023 1:01:31 PM Please note that all CT scans at this facility use dose modulation, iterative reconstruction, and/or weight-based dosing when appropriate to reduce radiation dose to as low as reasonably achievable. Dictated by: Rainer Yousif MD @ 12/19/2023 13:01:53 Signed by:?Rainer Yousif MD @12/19/2023 1:01:53 PM (Electronic Signature)
--- NOTE | 2023-12-19 11:49 | CT_ITS ---
Patient: JUAN A PENA Facility:?[facility] Patient ID:?[id number] Site Patient ID:?[id number]. Site :?2003 Study:?CT-Head WITHOUT-12/19/2023 12:34:49 PM Ordering Physician:?DR. VALDOVINOS Final Report: INDICATIONS: Altered mental status. DKA. TECHNIQUE: CT head without contrast. COMPARISON: None FINDINGS: There is no mass effect or midline shift. No hydrocephalus. No CT evidence of acute hemorrhage or infarction. No abnormal extra-axial fluid collection. Bone windows show no acute or suspicious osseous abnormality. Mild mucosal thickening in the right maxillary sinus. Paranasal sinuses and orbits as imaged are otherwise unremarkable. Mastoid air cells are clear. IMPRESSION: No acute intracranial abnormality. Dictated by Rainer Yousif MD @ 12/19/2023 12:50:31 PM Please note that all CT scans at this facility use dose modulation, iterative reconstruction, and/or weight-based dosing when appropriate to reduce radiation dose to as low as reasonably achievable. Dictated by: Rainer Yousif MD @ 12/19/2023 12:50:37 Signed by:?Rainer Yuosif MD @12/19/2023 12:50:37 PM (Electronic Signature)
[2023-12-19 11:55] LABS: Ur HCG Qualitative* Negative (Negative)
[2023-12-19 12:05] LABS: Amphetamine Screen Urine Negative (Negative); Barbiturate Screen Urine Negative (Negative); Benzodiazepines Screen Urine Negative (Negative); Cannabinoid Screen Urine Negative (Negative); Cocaine Screen Urine Negative (Negative); Methadone Screen Urine Negative (Negative); Methamphetamines Screen Urine Negative (Negative); Opiate Screen Urine Negative (Negative); Oxycodone Screen Urine Negative (Negative); Phencyclidine Screen Urine Negative (Negative); Tricyclic Antidepressant Urine Negative (Negative)
[2023-12-19 12:06] LABS: HCO3 VBG 4 mmol/L (21-28); PCO2 VBG 21 mmHG (40-50)
[2023-12-19 12:09] LABS: Appearance Urine Clear (Clear); Bilirubin Urine Negative (Negative); Blood Urine Trace-intact (Negative); Color Urine Yellow (Yellow); Glucose Urine 2+ (Negative); Ketones Urine 4+ (Negative); Protein Urine 2+ (Negative); Specific Gravity Urine 1.015 (1.000-1.030); pH Urine 5.5 (5.0-8.5)
[2023-12-19 12:10] LABS: Leukocyte Esterase Urine Negative (Negative); Nitrite Urine Negative (Negative); Squamous Epithelial Cell Urine Few (None-Few); Urobilinogen Urine 0.2 (0.2-1.0); WBC Urine 0-2 (0-5)
[2023-12-19 12:29] LABS: Chloride* 118 mmol/L (96-114); Potassium* 3.8 mmol/L (3.6-5.1); Sodium* 149 mmol/L (135-149)
[2023-12-19 12:32] LABS: Blood Urea Nitrogen* 22 mg/dL (5-24); Creatinine* 0.9 mg/dL (0.5-1.5); Est. Creatinine Clearance* 78.54; Estimated Glomerular Filt Rate 94 ml/min
[2023-12-19 12:33] LABS: Calcium* 7.2 mg/dL (8.4-10.6)
[2023-12-19 12:40] LABS: Anion Gap 26 mEq/L (7-15)
[2023-12-19 12:42] LABS: Carbon Dioxide* < 5 mmol/L (20-32); Glucose* 764 mg/dL (60-115); Phosphorus* 7.4 mg/dL (2.5-4.5)
[2023-12-19] MEDS: LACTATED RINGERS 1000 ML 1,000 ML 500 ML IV (12:52)
[2023-12-19] MEDS: SODIUM BICARBONATE 50 MEQ/50ML SYRINGE IVP (13:00)
[2023-12-19] MEDS: 0.9 % SODIUM CH + KCL 20 mEq/L 1,000 ML 250 ML IV (14:07)
[2023-12-19 15:14] LABS: HCO3 VBG 7 mmol/L (21-28); PCO2 VBG 20 mmHG (40-50); PO2 VBG 54.5 mmHG (25-47)
[2023-12-19] MEDS: 5 % DEX/0.9 SOD CHL+KCL 20 mEq 1,000 ML 250 ML IV (15:35)
[2023-12-19 15:42] LABS: Chloride* 120 mmol/L (96-114); Potassium* 4.6 mmol/L (3.6-5.1); Sodium* 155 mmol/L (135-149)
[2023-12-19 15:45] LABS: Anion Gap 28 mEq/L (7-15); Blood Urea Nitrogen* 23 mg/dL (5-24); Calcium* 9.7 mg/dL (8.4-10.6); Est. Creatinine Clearance* 70.68; Estimated Glomerular Filt Rate 83 ml/min
[2023-12-19 16:24] LABS: Carbon Dioxide* 7 mmol/L (20-32); Glucose* 377 mg/dL (60-115)
== END 2023-12-19 16:46 | disposition short-term general hospital (02) ==
PROVIDERS: Emergency Medicine; Emergency Provider Student in an Organized Health Care Education/Training Program; PCP Family Medicine
DX: E87.0 Hyperosmolality and hypernatremia (principal); E11.10 Type 2 diabetes mellitus with ketoacidosis without coma
CPT/HCPCS: 36415; 70450; 71260; 74177; 80048; 80053; 80306; 81001; 81025; 82077; 82803; 83036; 83735; 84100; 85025; 87040; 87086; 93005; 96374; 96375; 96376; 99285; 99291; J2060; J2405; J3590; J7030; J7120; Q9967

== ENCOUNTER 2023-12-19 16:33 | Outpatient (CLI) | payer OTHER, SELFPAY | END 2023-12-19 16:34 | disposition home or self-care (01) | LOC: AMB 12-28 18:43 | PROVIDERS: PCP Family Medicine; Visit Provider Student in an Organized Health Care Education/Training Program | DX: E11.65 Type 2 diabetes mellitus with hyperglycemia (principal); R41.82 Altered mental status, unspecified | CPT/HCPCS: A0425; A0434 ==

== ENCOUNTER 2025-01-21 17:25 | Outpatient (CLI) | payer OTHER, SELFPAY ==
--- NOTE | 2025-01-21 17:30 | CRLHL7_ITS ---
For Patients: As a result of the Century Cures Act, medical imaging exams and procedure reports are released immediately into your electronic medical record. You may view this report before your referring provider. If you have questions, please contact your health care provider. INDICATION: Dysmenorrhea COMPARISON: 07/26/2021 TECHNIQUE: 2D giron-scale and color Doppler images were acquired of the pelvis using a transabdominal and transvaginal approach. Transvaginal imaging performed to better visualize the endometrial stripe and ovaries. FINDINGS: Sonographic images demonstrate a normal size and smooth outer contour of the uterus. Uterus measures 8.1 cm in length by 3.3 cm in AP diameter by 3.9 cm in transverse dimension. The myometrium has a normal uniform echotexture. The endometrial lining appears normal and measures 4.5 mm in thickness. The right ovary measures 3.7 x 2.2 x 2.3 cm in size and the left ovary measures 3.7 x 2.3 x 1.8 cm. The ovaries demonstrate normal arterial and venous blood flow on color Doppler analysis. There are no suspicious fluid collections within the cul-de-sac. IMPRESSION: Endometrial thickness 4.5 millimeters. No endometrial fluid or uterine fibroid. Dictated by Jayce Sahu MD @ 01/22/2025 6:56:43 PM (Electronically Signed)
== END 2025-01-21 17:26 | disposition home or self-care (01) ==
LOC: US 17:25
PROVIDERS: Visit Provider Physician Assistant
DX: N94.6 Dysmenorrhea, unspecified (principal); R93.89 Abnormal findings on diagnostic imaging of other specified body structures
CPT/HCPCS: 76830; 76856; 93976

== ENCOUNTER 2025-03-10 09:52 | Outpatient (CLI) | payer OTHER, SELFPAY | END 2025-03-10 09:53 | disposition home or self-care (01) | LOC: NFLDREF 03-11 15:14 | PROVIDERS: Visit Provider Physician Assistant Medical | DX: R39.89 Other symptoms and signs involving the genitourinary system (principal); N39.0 Urinary tract infection, site not specified | CPT/HCPCS: 87086 ==

== ENCOUNTER 2025-04-01 15:20 | Outpatient (CLI) | payer OTHER, SELFPAY | END 2025-04-01 15:21 | disposition home or self-care (01) | LOC: NFLDREF 04-06 14:12 | DX: N39.0 Urinary tract infection, site not specified (principal); B96.20 Unspecified Escherichia coli [E. coli] as the cause of diseases classified elsewhere | CPT/HCPCS: 87086 ==